=== PATIENT | female | born 1960 | race Caucasian/White ===

== ENCOUNTER 2018-07-31 06:24 | Day surgery (SDC) | payer BC ==
[2018-07-29 13:58] VITALS: BMI 20.2
[2018-07-31] MEDS ORDERED: EPINEPHrine 1:1,000 1 MG/1 ML - 30ML VIAL (INJECTION) ONE (07:10)
[2018-07-31] MEDS ORDERED: BUPIVACAINE HCL 0.25% 125 MG/50 ML VIAL ONE (07:10)
[2018-07-31] MEDS ORDERED: PROPOFOL 20 ML ONE ×2 (07:20)
[2018-07-31] MEDS ORDERED: MIDAZOLAM HCL 2 MG/2 ML SINGLE DOSE VIAL ONE (07:20)
[2018-07-31] MEDS ORDERED: LIDOCAINE HCL/PF 2% SDV 5ML VIAL ONE (07:21)
[2018-07-31] MEDS ORDERED: BUPIVACAINE HCL/PF 2.5 MG/ML - 30 ML VIAL IJ ONE (07:29)
[2018-07-31] MEDS ORDERED: DEXAMETHASONE SOD PHOSPHATE 4 MG/1 ML VIAL ONE (08:21)
[2018-07-31] MEDS ORDERED: ONDANSETRON 4 MG/2 ML VIAL ONE ×2 (08:21→09:18)
[2018-07-31] MEDS ORDERED: CLINDAMYCIN PHOSPHATE 600 MG/4 ML VIAL ONE (08:23)
[2018-07-31] MEDS ORDERED: ACETAMINOPHEN INJECTION 100 ML IVPB ONE (08:25)
[2018-07-31] MEDS ORDERED: BUPIVACAINE HCL/PF 0.25% (2.5MG/ML) 10 ML VIAL IJ ONE (08:47)
[2018-07-31] MEDS ORDERED: KETOROLAC TROMETHAMINE 30 MG/1 ML VIAL ONE (08:56)
[2018-07-31] MEDS ORDERED: PROMETHAZINE HCL 25 MG/1 ML VIAL IVPB PRN (09:16)
[2018-07-31] MEDS ORDERED: ONDANSETRON 4 MG/2 ML VIAL IVPUSH PRN (09:16)
[2018-07-31] MEDS ORDERED: oxyCODONE HCL 5 MG TABLET PO PRN (09:16)
[2018-07-31] MEDS ORDERED: LACTATED RINGERS SOLUTION 1,000 ML IV SCH (09:30)
[2018-07-31 11:21] VITALS: PULSE 86; TEMP 97.8
[2018-07-31] MEDS ORDERED: IBUPROFEN 400 MG TABLET (FP) PO ONE ×2 (11:26→11:28)
[2018-07-31 12:18] VITALS: BP 112/60
--- NOTE | 2018-08-01 06:12 | OP ---
DATE OF OPERATION: 07/31/2018 SURGEON: Reynold Rees MD ASSISSTANT: REENA Lehman PREOPERATIVE DIAGNOSIS: 1. Right knee medial and lateral meniscal tears. 2. Right knee cartilage injury. 3. Right knee synovitis. POSTOPERATIVE DIAGNOSIS: 1. Right knee medial and lateral meniscal tears. 2. Right knee cartilage injury. 3. Right knee synovitis. PROCEDURE: 1. Right knee arthroscopy with partial meniscectomies of medial and lateral meniscus. CPT code 77987. 2. Right knee arthroscopy with chondroplasty and abrasoplasty. CPT code 2979, 3. Right knee arthroscopy with synovectomy, CPT code 78862. FINDINGS: 1. Medial meniscus body and horn tear, inner 1/3. 2. Lateral meniscus anterior 1/3 tear undersurface with posterior rim intact. 3. Synovitis, patellofemoral and medial lateral notch area. 4. Antegrade 1-2 cartilage injury, central portion of medial femoral condyle. 5. ACL avulsion with scarring to posterior cruciate ligament. 6. Minimal cartilage changes, lateral joint line, with central grade 2-3 cartilage injury, lateral tibial plateau. 7. Central grade 2-3 cartilage injury, patellofemoral trochlea, antegrade 4 changes, patellofemoral trochlea. DESCRIPTION OF PROCEDURE: Informed consent was obtained. The patient came to the operating room, where the lower extremity was prepped and draped in a sterile fashion. A tourniquet was placed on the upper thigh, but not inflated. Using standard arthroscopic technique, a lateral incision and portal was made to allow for introduction of the camera into the suprapatellar bursa. This was then taken to the medial joint line, where under direct visualization, a medial incision and portal was made. Excessive synovium noted in the medial, lateral and patellofemoral and notch area was removed by an upbiter, shaver and Bovie cautery. This was found to bring in inflammatory tissue into the joint surface, a source of pain and dysfunction. Probing of the medial and lateral meniscus found tears, as described in the findings. These were removed with the upbiter and shaver and taken back to a stable rim. Grade 2 to 3 degenerative changes were treated with a chondroplasty, removing all flaking surfaces with low-setting Bovie along the periphery to prevent further flaking. Grade 4 changes, as noted, were treated with an abrasoplasty, creating a bleeding surface at the bone/cartilage interface. Aggressive debridement with shaver/riri created bleeding surface. Micro fracture also done when indicated in findings. All areas of the knee were once again reexamined. The knee was then drained and a single suture was placed in all portals. A sterile dressing was placed and the patient was transferred to the recovery room without complication. The PA listed above was present and assisted at surgery. Their presence was absolutely medically necessary for the completion of the procedure. They helped hold the arthroscopy, pass instruments (and implants when indicated) and the procedure could not have been completed without their assistance. REYNOLD REES M.D. [id number]
--- NOTE | 2018-08-04 15:26 | PATH ---
Surgical Pathology Report Patient Name: SLOANE CIFUENTES [facility]. Rec. #: [id number] /Age/Gender: 1960 (Age: 58) / F Account: [id number] Location: [facility] Taken: 07/31/2018 Received: 07/31/2018 Reported: 08/04/2018 Physicians: Reynold Gould M.D. Specimen(s) Received SHAVINGS RIGHT KNEE Clinical History Right knee meniscus derangement Final Diagnosis KNEE SHAVINGS, RIGHT, ARTHROSCOPY: FRAGMENTS OF DENSE FIBROCONNECTIVE TISSUE, ADIPOSE TISSUE, AND REACTIVE SYNOVIUM. Electronically Signed Keisha Adams M.D. Gross Description Received in formalin, labeled "shavings right knee," is a 4.0 x 3.0 x 0.3 cm. aggregate of casanova-yellow soft tissue fragments. A manufacturer's representative portion is submitted in one cassette. /08/03/2018 saudi08/03/2018
== END 2018-07-31 12:05 | disposition home or self-care (01) ==
LOC: FASU 06:24
PROVIDERS: ATTEND Orthopaedic Surgery
PROC: 0SBC4ZZ Excision of Right Knee Joint, Percutaneous Endoscopic Approach (ICD-10-PCS; 2018-07-31)
PROC: 0SBC4ZZ Excision of Right Knee Joint, Percutaneous Endoscopic Approach (ICD-10-PCS; 2018-07-31)
PROC: 0SBC4ZZ Excision of Right Knee Joint, Percutaneous Endoscopic Approach (ICD-10-PCS; principal; 2018-07-31 08:33)
DX: S83.241A Other tear of medial meniscus, current injury, right knee, initial encounter (principal); S83.281A Other tear of lateral meniscus, current injury, right knee, initial encounter; S83.8X1A Sprain of other specified parts of right knee, initial encounter; M65.861 Other synovitis and tenosynovitis, right lower leg; X58.XXXA Exposure to other specified factors, initial encounter; Y93.9 Activity, unspecified; Y92.9 Unspecified place or not applicable
CPT/HCPCS: 88304-TC; 94760; J0131